=== PATIENT | male | born 1945 | race Caucasian/White ===

== ENCOUNTER 2017-07-21 14:57 | Emergency (ER) | payer MEDICARE ==
[~2017-07-21] VITALS: Ht 190.5 cm; Wt 129.0 kg
[2017-07-21 15:09] VITALS: BP 150/70; PULSE 100; RESP 16; TEMP 98.3; O2SAT 95
[2017-07-21] MEDS ORDERED: LISI2.5T3 PO (15:43)
[2017-07-21] MEDS ORDERED: METO25TA3 PO (15:43)
[2017-07-21] MEDS ORDERED: ASPI-516 CHEW (15:43)
[2017-07-21] MEDS ORDERED: PLAV75TA29 PO (15:43)
[2017-07-21] MEDS ORDERED: LEVEMIR SQ (15:43)
[2017-07-21] MEDS ORDERED: TETANUS/DIPHTHERIA TOXOID ADULT 0.5 ML VIAL IM ONE (16:00)
--- NOTE | 2017-07-21 16:28 | RADRPT ---
EXAM DATE/TIME: 07/21/2017 16:09 [facility] COMPARISON: No previous studies available for comparison. INDICATIONS : Right elbow pain post fall. MEDICAL HISTORY : Hypertension. Diabetes SURGICAL HISTORY : Coronary artery stent. ENCOUNTER: Initial ACUITY: 1 day PAIN SCORE: 5/10 LOCATION: Right upper extremity FINDINGS: Two view examination of the right elbow demonstrates no soft tissue swelling, joint effusion, fractur e or dislocation. Bony mineralization is normal. CONCLUSION: Normal examination for a patient of this age. Rgoer Rivera MD on July 21, 2017 at 16:26 Board Certified Radiologist. This report was verified electronically.
--- NOTE | 2017-07-21 16:29 | RADRPT ---
EXAM DATE/TIME: 07/21/2017 16:09 [facility] COMPARISON: No previous studies available for comparison. INDICATIONS : Right knee pain with abrasion to the patella region post fall. MEDICAL HISTORY : Hypertension. Diabetes SURGICAL HISTORY : Coronary artery stent. ENCOUNTER: Initial ACUITY: 1 day PAIN SCORE: 5/10 LOCATION: Right knee FINDINGS: Two view examination of the right knee demonstrates no evidence of fracture or dislocation. Bony min eralization is normal. The suprapatellar soft tissues have a normal configuration. There are mild de generative changes characteristic for patient's age. CONCLUSION: No acute fracture or joint dislocation. Roger Rivera MD on July 21, 2017 at 16:26 Board Certified Radiologist. This report was verified electronically.
--- NOTE | 2017-07-21 16:29 | RADRPT ---
EXAM DATE/TIME: 07/21/2017 16:09 [facility] COMPARISON: No previous studies available for comparison. INDICATIONS : Right shoulder pain post fall. MEDICAL HISTORY : Hypertension. Diabetes SURGICAL HISTORY : Coronary artery stent. ENCOUNTER: Initial ACUITY: 1 day PAIN SCORE: 5/10 LOCATION: Right upper extremity FINDINGS: Two view examination of the right shoulder demonstrates no evidence of fracture or dislocation. The glenohumeral and acromioclavicular joints are maintained. Bony mineralization is normal. CONCLUSION: Normal examination for a patient of this age. Roger Rivera MD on July 21, 2017 at 16:27 Board Certified Radiologist. This report was verified electronically.
--- NOTE | 2017-07-21 16:36 | RADRPT ---
EXAM DATE/TIME: 07/21/2017 16:23 [facility] COMPARISON: No previous studies available for comparison. INDICATIONS : Patient fell and hit forehead no LOC RADIATION DOSE: 65.21 CTDIvol (mGy) MEDICAL HISTORY : Hypertension. Diabetes mellitus type 2. Cardiovascular diseaseanticoagulant therapy SURGICAL HISTORY : Coronary artery stent. ENCOUNTER: Initial ACUITY: 1 day PAIN SCALE: 4/10 LOCATION: cranial TECHNIQUE: Multiple contiguous axial images were obtained of the head. Using automated exposure control and adj ustment of the mA and/or kV according to patient size, radiation dose was kept as low as reasonably a chievable to obtain optimal diagnostic quality images. DICOM format image data is available electro nically for review and comparison. FINDINGS: CEREBRUM: The ventricles are normal for age. There is bilateral cortical atrophy characteristic for patient's a ge. No evidence of midline shift, mass lesion, hemorrhage or acute infarction. No extra-axial fluid collections are seen. POSTERIOR FOSSA: The cerebellum and brainstem are intact. The 4th ventricle is midline. The cerebellopontine angle i s unremarkable. EXTRACRANIAL: The visualized portion of the orbits is intact. SKULL: The calvaria is intact. No evidence of skull fracture. CONCLUSION: 1. Bilateral cortical atrophy. 2. No acute intracranial hemorrhage. Roger Rivera MD on July 21, 2017 at 16:33 Board Certified Radiologist. This report was verified electronically.
--- NOTE | 2017-07-21 16:47 | PD ---
HPI Chief Complaint: Fall Time Seen by Provider: 15:38 Travel History International Travel<30 days: No Contact w/Intl Traveler<30days: No Traveled to known affect area: No History of Present Illness HPI 71yo M with DM, HTN, CAD on plavix and aspirin presents to the ED after falling while changing tire. Pt has abrasion on right forehead, right elbow and right knee. Said he fell and rolled. He also complained of right shoulder pain. Denies any fever, dizziness, LOC, chest pain, sob, n/v, abdominal pain, focal weakness or numbness. No anticoagulation. Pt now with mild right sided headache. Pt said he has frequent falls and has an appointment with neurologist for this end of this month. Neighbor is here and said he is acting like himself. PFSH Past Medical History Hx Anticoagulant Therapy: Yes Cardiovascular Problems: Yes Diabetes: Yes Patient Takes Glucophage: No Hypertension: Yes Past Surgical History Coronary Stent: Yes (states multiple) Social History Alcohol Use: No Tobacco Use: No Substance Use: No Allergies-Medications (Allergen,Severity, Reaction): Coded Allergies: niacin (Verified Allergy, Unknown, 07/21/17) Reported Meds & Prescriptions Reported Meds & Active Scripts Active Tylenol (Acetaminophen) 325 Mg Tab 325 Mg PO Q4H PRN Reported Plavix (Clopidogrel Bisulfate) 75 Mg Tab 75 Mg PO DAILY Levemir Inj (Insulin Detemir) 1,000 unit/ 10 ML Vial 32 Units SQ DAILY Do not mix with any other Insulin. Aspirin 81 Mg Chew 81 Mg CHEW DAILY Metoprolol Tartrate 25 Mg Tab 25 Mg PO DAILY Lisinopril 2.5 Mg Tab 2.5 Mg PO DAILY Review of Systems Except as stated in HPI: all other systems reviewed are Neg Physical Exam Narrative GENERAL: 71yo M in mild distress. SKIN: Focused skin assessment warm/dry. HEAD: Abrasion right forearm. EYES: Pupils equal and round. No scleral icterus. No injection or drainage. ENT: No nasal bleeding or discharge. Mucous membranes pink and moist. NECK:No midline cervical spine ttp. CARDIOVASCULAR: Regular rate and rhythm. No murmur appreciated. RESPIRATORY: No accessory muscle use. Clear to auscultation. Breath sounds equal bilaterally. GASTROINTESTINAL: Abdomen soft, non-tender, nondistended. MUSCULOSKELETAL: RUE: +Abrasion right elbow. +TTP proximal humerus. Good range of motion. Sensation intact. Distal pulses intact. RLE: +Abrasions on right knee. FROM right knee. Sensation intact. Distal pulses intact. BACK: No midline thoracic or lumbar ttp. NEUROLOGICAL: Awake and alert. No obvious cranial nerve deficits. Motor grossly within normal limits. Normal speech. PSYCHIATRIC: Appropriate mood and affect; insight and judgment normal. Data Data Last Documented VS Vital Signs Date Time Temp Pulse Resp B/P (MAP) Pulse Ox O2 Delivery O2 Flow Rate FiO2 07/21/17 15:09 98.3 100 16 150/70 (96) [address] Brain W/O Iv Contrast(Rout) (07/21/17 ) Ct Cerv Spine W/O Contrast (07/21/17 ) Shoulder, Limited(2vws) (07/21/17 ) Elbow, Limited (Ap&Lat) (07/21/17 ) Knee, Ltd (1 Or 2vws) (07/21/17 ) Tetanus/Diphtheria Tox Adult (Tetanus/Di (07/21/17 16:00) Acetaminophen (Tylenol) (07/21/17 17:15) MDM Medical Decision Making Medical Screen Exam Complete: Yes Emergency Medical Condition: Yes Differential Diagnosis ICH vs. fracture vs. contusion Narrative Course 71yo M here for evaluation after what sounds like a mechanical fall today. Pt is AAOx3 and complains of mild right sided headache and right shoulder pain. Has some abrasion but no lacerations to suture. Denies any dizziness, chest pain, sob, focal weakness or numbness. CT cervical spine showed no acute bony fracture. Xray right elbow negative. CT brain showed bilateral cortical atrophy. No acute intracranial hemorrhage. Xray right knee negative. Xray right shoulder negative. Pt had tetanus 3 years ago. Pt given acetaminophen and pain has improved. Pt wants to go home and next door neighbor is here to accompany him. Strict return precautions given. Diagnosis Primary Impression: Fall Qualified Codes: W19.XXXA - Unspecified fall, initial encounter Patient Instructions: General Instructions Departure Forms: Tests/Procedures Additional Instructions: Please follow up with your primary care physician in 2-3 days. Please return to the ED if symptoms worsen. Med/Other Pt SpecificInfo: Prescription(s) given Scripts Acetaminophen (Tylenol) 325 Mg Tab 325 MG PO Q4H Y for PAIN SCALE 1 TO 4, #20 TAB 0 Refills Prov: Liane Schumacher DO 07/21/17 Disposition: 01 DISCHARGE HOME Condition: Stable Liane Schumacher DO Jul 21, 2017 16:47
--- NOTE | 2017-07-21 16:53 | RADRPT ---
EXAM DATE/TIME: 07/21/2017 16:23 [facility] COMPARISON: No previous studies available for comparison. INDICATIONS : fell and hit forehead no LOC RADIATION DOSE: 26.54 CTDIvol (mGy) MEDICAL HISTORY : Hypertension. Cardiovascular disease Diabetes mellitus type 2.anticoagulant therapy SURGICAL HISTORY : Coronary artery stent. ENCOUNTER: Initial ACUITY: 1 day PAIN SCALE: 4/10 LOCATION: neck TECHNIQUE: Volumetric scanning of the cervical spine was performed. Multiplanar reconstructions in the sagittal, coronal and oblique axial planes were performed. Using automated exposure control and adjustment o f the mA and/or kV according to patient size, radiation dose was kept as low as reasonably achievable to obtain optimal diagnostic quality images. DICOM format image data is available electronically f or review and comparison. FINDINGS: VERTEBRAE: Normal vertebral body height. No acute bony fracture. There are primary degenerative changes involvin g the mid to lower cervical spine with disc space narrowing especially at C5-6 and C6-7. ALIGNMENT: No evidence of subluxation. C2-C3: The bony spinal canal is normal in size. No evidence of disc bulge or herniation. The neural forami na are bilaterally patent. C3-C4: The bony spinal canal is normal in size. No evidence of disc bulge or herniation. The neural forami na are bilaterally patent. C4-C5: The bony spinal canal is normal in size. No evidence of disc bulge or herniation. The neural forami na are bilaterally patent. C5-C6: Broad-based bulging disc with osteophyte complex. The neural from and appear patent. C6-C7: The bony spinal canal is normal in size. No evidence of disc bulge or herniation. The neural forami na are bilaterally patent. C7-T1: The bony spinal canal is normal in size. No evidence of disc bulge or herniation. The neural forami na are bilaterally patent. CONCLUSION: 1. No acute bony fracture. 2. Primary bony degenerative changes with disc degeneration, disc space narrowing and some broad-base d bulging. There is a broad-based bulge with disc osteophyte complex at C5-6. Roger Rivera MD on July 21, 2017 at 16:48 Board Certified Radiologist. This report was verified electronically.
[2017-07-21] MEDS ORDERED: TYLE325T PO (17:15)
[2017-07-21] MEDS ORDERED: ACETAMINOPHEN 500 MG CPLT PO ONE (17:15)
== END 2017-07-21 18:08 | disposition home or self-care (01) ==
LOC: PHED 14:57
DX: S50.311A Abrasion of right elbow, initial encounter (principal); S00.81XA Abrasion of other part of head, initial encounter; S80.211A Abrasion, right knee, initial encounter; W18.39XA Other fall on same level, initial encounter; E11.9 Type 2 diabetes mellitus without complications; I10 Essential (primary) hypertension; I25.10 Atherosclerotic heart disease of native coronary artery without angina pectoris; Y93.89 Activity, other specified; Z79.82 Long term (current) use of aspirin; Z79.02 Long term (current) use of antithrombotics/antiplatelets; Z95.5 Presence of coronary angioplasty implant and graft
CPT/HCPCS: 70450; 72125; 73030; 73070; 73560; 99285

== ENCOUNTER 2018-01-08 22:44 | Emergency (ER) | payer MEDICARE ==
[~2018-01-08] VITALS: Ht 190.5 cm; Wt 130.0 kg
[~2018-01-08 22:44] MED LIST: ASPI-516 CHEW; LEVEMIR SQ; LISI2.5T3 PO; METO25TA3 PO; PLAV75TA29 PO; TYLE325T PO
[2018-01-08 23:06] VITALS: BP 145/75; PULSE 103; RESP 16; TEMP 98.1; O2SAT 95
[2018-01-08] MEDS ORDERED: LIDOCAINE 1%/EPINEPHrine 1:100,000 SOLN 50 ML VIAL INFIL ONE (23:15)
[2018-01-08] MEDS ORDERED: COUM5TAB PO (23:26)
[2018-01-08 23:41] LABS: AUTOMATED NEUTROPHIL # 4.5 TH/MM3 (1.8-7.7); BASOPHIL % 0.3 % (0.0-2.0); EOSINOPHIL # 0.1 TH/MM3 (0-0.4); EOSINOPHIL % 1.2 % (0.0-4.0); HEMOGLOBIN 13.2 GM/DL (13.0-17.0); LYMPH % 17.8 % (9.0-44.0); LYMPHOCYTE # 1.1 TH/MM3 (1.0-4.8); MEAN CORPUSCULAR HEMOGLOBIN 30.2 PG (27.0-34.0); MEAN CORPUSCULAR HGB CONC 32.9 % (32.0-36.0); MEAN PLATELET VOLUME 9.6 FL (7.0-11.0); MONO % 7.8 % (0.0-8.0); MONOCYTE # 0.5 TH/MM3 (0-0.9); NEUT % 72.9 % (16.0-70.0); PLATELET COUNT 196 TH/MM3 (150-450); RED BLOOD COUNT 4.35 MIL/MM3 (4.50-5.90); RED CELL DISTRIBUTION WIDTH 14.8 % (11.6-17.2); WHITE BLOOD COUNT 6.2 TH/MM3 (4.0-11.0)
--- NOTE | 2018-01-08 23:44 | PD ---
HPI Chief Complaint: Laceration/Skin Injury Time Seen by Provider: 23:11 Travel History International Travel<30 days: No Contact w/Intl Traveler<30days: No Traveled to known affect area: No History of Present Illness HPI The patient is a 72 year old male who presents to the [facility] emergency department with a history of tripping and falling in his home prior to arrival. He reports that he uses a cane devices for stability. He reports that he turned out the light and lost his balance. The patient reports that he landed head first on concrete. Patient denies having any loss of consciousness. The patient reports that he developed a laceration to the right side of the forehead just above the right eyebrow. The patient was noted to have significant bleeding upon ambulance services arrival, a pressure bandage was applied which reportedly soaked through multiple times. The patient on arrival has a pressure bandage in place that has blood oozing through the bandaging. The patient reports that he is on Coumadin. He is unsure why he is on Coumadin. He is unsure when his last INR was checked. He denies having any neck pain, paresthesias, numbness or tingling, weakness to his extremities. He reports having a headache related to the pressure bandage, otherwise he denies having any acute complaints. On review of systems otherwise, the patient denies having chest pain, chest pressure, shortness of breath, abdominal pain, or extremity pain. On review of systems otherwise, the patient denies having any known recent fever, vomiting, diarrhea, urinary symptoms, or neurologic symptoms. PFSH Past Medical History Narrative Medical The patient's past medical history is significant for diabetes mellitus, obesity , hypertension, hyperlipidemia, chronic anticoagulation on Coumadin Hx Anticoagulant Therapy: Yes Cardiac Catheterization: Yes Cardiovascular Problems: Yes Diabetes: Yes Patient Takes Glucophage: Yes Hypertension: Yes Parkinson's Disease: Yes Tetanus Vaccination: Unknown Past Surgical History Narrative Surgical The patient's past surgical history is significant for cardiac catheterization with stent placement Coronary Stent: Yes (states multiple) Social History Alcohol Use: No Tobacco Use: No Substance Use: No Allergies-Medications (Allergen,Severity, Reaction): Coded Allergies: niacin (Verified Allergy, Unknown, 07/21/17) Reported Meds & Prescriptions Reported Meds & Active Scripts Active Tylenol (Acetaminophen) 325 Mg Tab 325 Mg PO Q4H PRN Reported Coumadin (Warfarin) 5 Mg Tab 5 Mg PO DAILY Levemir Inj (Insulin Detemir) 1,000 unit/ 10 ML Vial 32 Units SQ DAILY Do not mix with any other Insulin. Aspirin 81 Mg Chew 81 Mg CHEW DAILY Metoprolol Tartrate 25 Mg Tab 25 Mg PO DAILY Lisinopril 2.5 Mg Tab 2.5 Mg PO DAILY Review of Systems Except as stated in HPI: all other systems reviewed are Neg General / Constitutional: No: Fever Eyes: No: Visual changes HENT: Positive: Headaches, No: Congestion, Neck Stiffness, Neck Pain Cardiovascular: No: Chest Pain or Discomfort Respiratory: No: Cough, Shortness of Breath Gastrointestinal: No: Nausea, Vomiting, Diarrhea, Abdominal Pain Genitourinary: No: Dysuria Musculoskeletal: No: Pain Skin: No Rash Neurologic: Positive: Headache, No: Weakness, Focal Abnormalities, Change in Mentation, Slurred Speech, Sensory Disturbance Psychiatric: No: Depression Endocrine: No: Polydipsia Hematologic/Lymphatic: No: Easy Bruising Physical Exam Narrative General: The patient is a well-developed well-nourished male in no acute distress. The patient is brought in with a cervical collar in place. Head and Neck exam: Head is normocephalic, evidence of trauma with a pressure bandage to the head with blood oozing through the pressure bandage along the right side of the head on exam this was gently removed with the assistance of the physician occupational therapist's assistant, Ilya. The patient was noted to have oozing from a laceration involving and above the right eyebrow. This is an apparent jagged laceration. The patient has tenderness on palpation surrounding this site. No increased facial bowel motility on palpation. Eyes: EOMI, pupils are equal round and reactive to light. Nose: Midline septum with pink mucous membranes Mouth: Dentition unremarkable. Moist mucus membranes. Posterior oropharynx is not erythematous. No tonsillar hypertrophy. Uvula midline. Airway patent. Neck: The patient is immobilized in a cervical collar. No tracheal deviation. The trachea appears midline. Cardiovascular: Regular rate and rhythm without murmurs, gallops, or rubs. Lungs: Clear to auscultation bilaterally. No wheezes, rhonchi, or rales. No chest wall tenderness to palpation. No erythema or ecchymosis noted. No crepitus , step off, or flail segment noted. Abdomen: Soft, without tenderness to palpation in all 4 quadrants of the abdomen. No guarding, rebound, or rigidity. No erythema or ecchymosis noted. Extremities: No instability or pain noted on pelvic rock. No clubbing, cyanosis , or edema. 2+ pulses in all 4 extremities. No extremity tenderness or deformity noted on palpation or passive/ active range of motion. The patient is noted to have an area of bruising to the right anterior knee. No ballotable patella. No crepitus or loss of range of motion. Back: No spinous process tenderness to palpation. No stepoff or crepitus noted. No costovertebral angle tenderness to palpation. No erythema or ecchymosis. Neurologic Exam: Cranial nerves 2-12 were intact on exam. Strength is 5/5 in all 4 extremities. No sensory deficits noted. Skin Exam: No rash noted. Intact skin that is warm and dry. Data Data Last Documented VS Vital Signs Date Time Temp Pulse Resp B/P (MAP) Pulse Ox O2 Delivery O2 Flow Rate FiO2 01/08/18 23:09 103 01/08/18 23:06 98.1 16 145/75 (98) 95 Orders Orders Lidocai-Epi 1%-1:100,000 Inj (Xylocaine- (01/08/18 23:15) Electrocardiogram (01/08/18 23:12) Complete Blood Count With Diff (01/08/18 23:12) Comprehensive Metabolic Panel (01/08/18 23:12) Creatine Kinase (Cpk) (01/08/18 23:12) Ckmb (Isoenzyme) Profile (01/08/18 23:12) Troponin I (01/08/18 23:12) Prothrombin Time / Inr (Pt) (01/08/18 23:12) Act Partial Throm Time (Ptt) (01/08/18 23:12) Chest, Single Ap (01/08/18 23:12) Ct Brain W/O Iv Contrast(Rout) (01/08/18 23:12) Iv Access Insert/Monitor (01/08/18 23:12) Ecg Monitoring (01/08/18 23:12) Oximetry (01/08/18 23:12) I-Stat Profile (01/08/18 23:12) I-Stat Creatinine (01/08/18 23:12) Type And Screen (01/08/18 23:12) Pelvis, Ap Only (Routine) (01/08/18 23:12) Oxygen Administration (01/08/18 23:12) Ct Cerv Spine W/O Contrast (01/08/18 23:12) Ct Facial Bones W/O Iv Cont (01/08/18 23:12) Cefazolin 2 Gm Premix (Ancef 2 Gm Premix (01/08/18 23:45) Bqym-Ixj-Fqadte (Booster) Inj (Boostrix (01/08/18 23:45) Sodium Chlor 0.9% 1000 Ml Inj (Ns 1000 M (01/08/18 23:45) Morphine Inj (Morphine Inj) (01/08/18 23:45) Ondansetron Odt (Zofran Odt) (01/08/18 23:45) Labs Laboratory Tests Test 01/08/18 23:30 White Blood Count 6.2 TH/MM3 Red Blood Count 4.35 MIL/MM3 Hemoglobin 13.2 GM/DL Bedside Hemoglobin 12.9 G/DL Hematocrit 40.0 % Bedside Hematocrit 38.0 % Mean Corpuscular Volume 92.0 FL Mean Corpuscular Hemoglobin 30.2 PG Mean Corpuscular Hemoglobin Concent 32.9 % Red Cell Distribution Width 14.8 % Platelet Count 196 TH/MM3 Mean Platelet Volume 9.6 FL Neutrophils (%) (Auto) 72.9 % Lymphocytes (%) (Auto) 17.8 % Monocytes (%) (Auto) 7.8 % Eosinophils (%) (Auto) 1.2 % Basophils (%) (Auto) 0.3 % Neutrophils # (Auto) 4.5 TH/MM3 Lymphocytes # (Auto) 1.1 TH/MM3 Monocytes # (Auto) 0.5 TH/MM3 Eosinophils # (Auto) 0.1 TH/MM3 Basophils # (Auto) 0.0 TH/MM3 CBC Comment DIFF FINAL Differential Comment Prothrombin Time 10.6 SEC Prothromb Time International Ratio 1.0 RATIO Activated Partial Thromboplast Time 24.8 SEC Bedside Sodium 137 MMOL/L Blood Urea Nitrogen 25 MG/DL Creatinine 1.53 MG/DL Random Glucose 219 MG/DL Total Protein 7.6 GM/DL Albumin 3.4 GM/DL Calcium Level 9.0 MG/DL Alkaline Phosphatase 106 U/L Aspartate Amino Transf (AST/SGOT) 12 U/L Alanine Aminotransferase (ALT/SGPT) 9 U/L Total Bilirubin 0.4 MG/DL Sodium Level 137 MEQ/L Potassium Level 4.3 MEQ/L Chloride Level 102 MEQ/L Carbon Dioxide Level 23.9 MEQ/L Bedside Potassium 4.4 MMOL/L Bedside Chloride 100 MMOL/L Anion Gap 11 MEQ/L Bedside Blood Urea Nitrogen 27 MG/DL Bedside Creatinine 1.4 MG/DL Estimat Glomerular Filtration Rate 45 ML/MIN Bedside Glucose 221 MG/DL Total Creatine Kinase 35 U/L Troponin I LESS THAN 0.02 NG/ML MDM Medical Decision Making Medical Screen Exam Complete: Yes Emergency Medical Condition: Yes Medical Record Reviewed: Yes Differential Diagnosis Intracranial hemorrhage, versus facial bone fracture, versus cervical spine trauma, versus intrathoracic trauma, versus pelvis trauma Narrative Course During the course of the patient's emergency department visit, the patient's history, examination, and differential diagnosis were reviewed with the patient. The patient was placed on a hall monitor with oximetry and frequent blood pressure monitoring. The patient had IV access obtained and blood work sent for analysis. An i-STAT with creatinine was ordered as the patient is anticoagulated on Coumadin with head trauma. The patient was initially provided Ancef 2 g IV, normal saline at 70 mL/h, and update to his tetanus, morphine for pain, Zofran for nausea. The patient's laboratory studies were reviewed and remarkable for an i-STAT with creatinine revealed a creatinine 1.4, sodium 136, potassium 4.4, chloride 100, BUN 27, glucose 221, hemoglobin 12.9. White count 6.2, platelets 196 with 72.9 neutrophils, CMP is remarkable for a glucose of 219, AST 12, ALT 9, cardiac enzymes within normal limits, PT 10.6, PTT 24.8, INR 1.0 Radiology studies were reviewed Last Impressions Pelvis X-Ray 01/08/182311 Signed Impressions: CONCLUSION: No acute fracture or joint dislocation. Maxillofacial CT 01/08/182311 Signed Impressions: CONCLUSION: 1. No acute bony fracture. 2. Old blowout fracture involving the inferior wall the left orbit. 3. Nasal septal deviation to the left. Head CT 01/08/182311 Signed Impressions: CONCLUSION: 1. Unremarkable and stable CT scan of the brain for patient's age. Chest X-Ray 01/08/182311 Signed Impressions: CONCLUSION: Scattered areas of atelectasis in both lower lungs. Cervical Spine CT 01/08/182311 Signed Impressions: CONCLUSION: 1. Stable CT cervical spine compared to the prior examination. 2. No significant change in the primary degenerative changes, disc degeneratio n disc space narrowing at C5-6. The patient's wound was cleaned, explored, and repaired by Ilya, the physician occupational therapist's assistant. The patient's bleeding was controlled. The patient will be discharged home. The patient is resting comfortably and feels better, is alert and in no distress. The patient's results and examination findings were discussed with the patient. The repeat examination is unremarkable and benign. The history, exam, diagnostic testing, and current condition do not suggest any significant pathology to warrant further testing, continued ED treatment, admission, or surgical evaluation at this point. The vital signs have been stable. The patient does not have uncontrollable pain, intractable vomiting, or other significant symptoms. The patient's condition is stable and appropriate for discharge. The patient will pursue further outpatient evaluation with a primary care physician or other designated or consulting physician as indicated in the discharge instructions. The patient is instructed to report back to the emergency department immediately for reexamination in the mean time if he/ she develops any new or worsening signs or symptoms. The patient expressed understanding and was agreeable with this plan. Diagnosis Primary Impression: Head injury Qualified Codes: S09.90XA - Unspecified injury of head, initial encounter Additional Impression: Facial laceration Qualified Codes: S01.81XA - Laceration without foreign body of other part of head, initial encounter Referrals: Primary Care Physician 2 days Patient Instructions: Facial Laceration (ED), General Instructions, Head Injury (ED) Med/Other Pt SpecificInfo: Prescription(s) given Disposition: 01 DISCHARGE HOME Condition: Stable Viktoriya Mckee MD Jan 08, 2018 23:44
[2018-01-08] MEDS ORDERED: ceFAZolin 2 GM PREMIX 50 ML IV ONE (23:45)
[2018-01-08] MEDS ORDERED: ONDANSETRON ODT 4 MG TAB PO ONE (23:45)
[2018-01-08] MEDS ORDERED: MORPHINE SULFATE 4 MG/ML INJ IV PUSH ONE (23:45)
[2018-01-08] MEDS ORDERED: SODIUM CHLOR 0.9% 1000 ML INJ 1,000 ML IV SCH (23:45)
[2018-01-08] MEDS ORDERED: DIPHTH/TETANUS/ACEL PERTUSSIS (BOOSTER) 0.5 ML VIAL/PFS IM ONE (23:45)
--- NOTE | 2018-01-08 23:46 | PD ---
Physical Exam Time Seen by Provider: 23:45 Data Data Last Documented VS Vital Signs Date Time Temp Pulse Resp B/P (MAP) Pulse Ox O2 Delivery O2 Flow Rate FiO2 01/08/18 23:09 103 01/08/18 23:06 98.1 16 145/75 (98) 95 Orders Orders Lidocai-Epi 1%-1:100,000 Inj (Xylocaine- (01/08/18 23:15) Electrocardiogram (01/08/18 23:12) Complete Blood Count With Diff (01/08/18 23:12) Comprehensive Metabolic Panel (01/08/18 23:12) Creatine Kinase (Cpk) (01/08/18 23:12) Ckmb (Isoenzyme) Profile (01/08/18 23:12) Troponin I (01/08/18 23:12) Prothrombin Time / Inr (Pt) (01/08/18 23:12) Act Partial Throm Time (Ptt) (01/08/18 23:12) Chest, Single Ap (01/08/18 23:12) Ct Brain W/O Iv Contrast(Rout) (01/08/18 23:12) Iv Access Insert/Monitor (01/08/18 23:12) Ecg Monitoring (01/08/18 23:12) Oximetry (01/08/18 23:12) I-Stat Profile (01/08/18 23:12) I-Stat Creatinine (01/08/18 23:12) Type And Screen (01/08/18 23:12) Pelvis, Ap Only (Routine) (01/08/18 23:12) Oxygen Administration (01/08/18 23:12) Ct Cerv Spine W/O Contrast (01/08/18 23:12) Ct Facial Bones W/O Iv Cont (01/08/18 23:12) Cefazolin 2 Gm Premix (Ancef 2 Gm Premix (01/08/18 23:45) Iimq-Bam-Xbkiru (Booster) Inj (Boostrix (01/08/18 23:45) Sodium Chlor 0.9% 1000 Ml Inj (Ns 1000 M (01/08/18 23:45) Morphine Inj (Morphine Inj) (01/08/18 23:45) Ondansetron Inj (Zofran Inj) (01/08/18 23:45) Labs Laboratory Tests Test 01/08/18 23:30 White Blood Count 6.2 TH/MM3 Red Blood Count 4.35 MIL/MM3 Hemoglobin 13.2 GM/DL Bedside Hemoglobin 12.9 G/DL Hematocrit 40.0 % Bedside Hematocrit 38.0 % Mean Corpuscular Volume 92.0 FL Mean Corpuscular Hemoglobin 30.2 PG Mean Corpuscular Hemoglobin Concent 32.9 % Red Cell Distribution Width 14.8 % Platelet Count 196 TH/MM3 Mean Platelet Volume 9.6 FL Neutrophils (%) (Auto) 72.9 % Lymphocytes (%) (Auto) 17.8 % Monocytes (%) (Auto) 7.8 % Eosinophils (%) (Auto) 1.2 % Basophils (%) (Auto) 0.3 % Neutrophils # (Auto) 4.5 TH/MM3 Lymphocytes # (Auto) 1.1 TH/MM3 Monocytes # (Auto) 0.5 TH/MM3 Eosinophils # (Auto) 0.1 TH/MM3 Basophils # (Auto) 0.0 TH/MM3 CBC Comment DIFF FINAL Differential Comment Bedside Sodium 137 MMOL/L Bedside Potassium 4.4 MMOL/L Bedside Chloride 100 MMOL/L Bedside Blood Urea Nitrogen 27 MG/DL Bedside Creatinine 1.4 MG/DL Bedside Glucose 221 MG/DL [facility] Medical Record Reviewed: Yes Supervised Visit with FAVIAN: No Narrative Course This patient presents with a forehead laceration which I was asked to repair. He verbally consents. See accompanying procedural note. Procedures Procedure Narrative LACERATION LOCATION: Right forehead LENGTH: 6 cm NUMBER OF STITCHES/CECILIA: 14 REPAIR: The area of the laceration was prepped with Betadine and sterilely draped. The laceration was infiltrated with [1% lidocaine with epinephrine. The wound was copiously irrigated and explored without evidence of foreign body , tendon injury or neurovascular injury. The wound was closed using 5-0 nylon simple interrupted. This was a single layer repair. A sterile dressing was applied. The patient was advised to keep the dressing clean and dry. Patient tolerated the procedure well. Diagnosis Primary Impression: Head injury Additional Impression: Facial laceration Ilya Flores Jan 08, 2018 23:46
[2018-01-08 23:50] LABS: PROTHROMBIN TIME - PATIENT 10.6 SEC (9.8-11.6)
[2018-01-09] LABS: ALBUMIN 3.4 GM/DL (3.4-5.0); ALT (GPT) 9 U/L (12-78); AST (GOT) 12 U/L (15-37); BICARBONATE 23.9 MEQ/L (21.0-32.0); BLOOD UREA NITROGEN 25 MG/DL (7-18); CHLORIDE 102 MEQ/L (98-107); CREATININE 1.53 MG/DL (0.60-1.30); GLOMERULAR FILTRATION RATE 45 ML/MIN (>89); GLUCOSE,RANDOM 219 MG/DL (74-106); SODIUM (NA) 137 MEQ/L (136-145)
[2018-01-09 00:04] LABS: ALKALINE PHOSPHATASE 106 U/L (45-117); TOTAL BILIRUBIN ADULT 0.4 MG/DL (0.2-1.0); TOTAL PROTEIN 7.6 GM/DL (6.4-8.2); TROPONIN I LESS THAN 0.02 NG/ML (0.02-0.05)
--- NOTE | 2018-01-09 00:05 | RADRPT ---
EXAM DATE: 01/08/2018 11:59 PM EDT AGE/SEX: 72 years / Male INDICATIONS: Trauma. Fell on face. CLINICAL DATA: This is the patient's initial encounter. Patient reports that signs and symptoms have been present for 1 day and indicates a pain score of 6/10. MEDICAL/SURGICAL HISTORY: Cardiovascular disease. Hypertension. Diabetes mellitus type II. Carvajal ry artery stent. RADIATION DOSE: 46.57 CTDI (mGy) COMPARISON: [facility], CT BRAIN W/O CONTRAST, 07/21/2017. . TECHNIQUE: CT of the head without contrast. Using automated exposure control and adjustment of the mA and/or kV according to patient size, radiation dose was kept as low as reasonably achievable to ob tain optimal diagnostic quality images. FINDINGS: Cerebrum: The ventricles are normal for age. Stable bilateral cortical atrophy. No evidence of midli ne shift, mass lesion, hemorrhage or acute infarction. No extraaxial fluid collections are seen. Posterior Fossa: The cerebellum and brainstem are intact. The 4th ventricle is midline. The cerebe llopontine angle is unremarkable. Extracranial: The visualized portion of the orbits is intact. Skull: The calvaria is intact. No evidence of skull fracture. CONCLUSION: 1. Unremarkable and stable CT scan of the brain for patient's age. Electronically signed by: Roger Rivera MD 01/09/2018 12:04 AM EDT
--- NOTE | 2018-01-09 00:08 | RADRPT ---
EXAM DATE: 01/09/2018 12:04 AM EDT AGE/SEX: 72 years / Male INDICATIONS: Trauma. Fell on face. CLINICAL DATA: This is the patient's initial encounter. Patient reports that signs and symptoms have been present for 1 day and indicates a pain score of 6/10. MEDICAL/SURGICAL HISTORY: Cardiovascular disease. Hypertension. Diabetes mellitus type II. Co ronary artery stent. RADIATION DOSE: 22.45 CTDI (mGy) COMPARISON: [facility], CT CERVICAL SPINE W/O CONTRAST, 07/21/2017. . TECHNIQUE: Contiguous axial images were obtained using helical multirow detector technique. The vol umetric data was post-processed with multiplanar reconstruction in oblique axial, sagittal, and coron al planes. Using automated exposure control and adjustment of the mA and/or kV according to patient s ize, radiation dose was kept as low as reasonably achievable to obtain optimal diagnostic quality jenae ges. FINDINGS: Vertebrae: Stable degenerative changes involving the mid to lower cervical spine. There continues to be disc degeneration with disc space narrowing especially at C5-6. No acute bony fractures. No signi ficant changes compared to the prior exam. Alignment: Normal. No subluxation. C2-3: The bony spinal canal is normal in size. No evidence of disc bulge or herniation. The neural foramina are bilaterally patent. C3-4: The bony spinal canal is normal in size. No evidence of disc bulge or herniation. The neural foramina are bilaterally patent. C4-5: The bony spinal canal is normal in size. No evidence of disc bulge or herniation. The neural foramina are bilaterally patent. C5-6: Broad-based bulging with disc osteophyte complex. Mild narrowing of the left neural foramina. The right neural foramina is patent. C6-7: The bony spinal canal is normal in size. No evidence of disc bulge or herniation. The neural foramina are bilaterally patent. C7-T1: The bony spinal canal is normal in size. No evidence of disc bulge or herniation. The neura l foramina are bilaterally patent. CONCLUSION: 1. Stable CT cervical spine compared to the prior examination. 2. No significant change in the primary degenerative changes, disc degeneration disc space narrowing at C5-6. Electronically signed by: Roger Rivera MD 01/09/2018 12:07 AM EDT
--- NOTE | 2018-01-09 00:18 | RADRPT ---
EXAM DATE: 01/09/2018 12:08 AM EDT AGE/SEX: 72 years / Male INDICATIONS: Trauma. Fell on face. CLINICAL DATA: This is the patient's initial encounter. Patient reports that signs and symptoms have been present for 1 day and indicates a pain score of 6/10. MEDICAL/SURGICAL HISTORY: Cardiovascular disease. Hypertension. Diabetes mellitus type II. Co ronary artery stent. RADIATION DOSE: 29.76 CTDI (mGy) COMPARISON: No prior [place] exams available for comparison. TECHNIQUE: Contiguous images in the axial and coronal planes were obtained using helical multirow de tector technique. Using automated exposure control and adjustment of the mA and/or kV according to p atient size, radiation dose was kept as low as reasonably achievable to obtain optimal diagnostic karla lity images. FINDINGS: Orbits: There is an old fracture involving the inferior wall of the left orbit. Otherwise, the bony structures surrounding the orbits are grossly intact. Nasal Bone: The nasal bone and maxillary spine are intact. Zygomatic Arches: Symmetric without evidence of fracture. Sinuses: The maxillary, ethmoid, and frontal sinuses are intact. No air-fluid levels seen. Nasal Cavity: Mild nasal septal deviation to the left. Aerated justen bullosa involving the middle t urbinates bilaterally.. Soft Tissues: No radiopaque foreign bodies seen. No soft-tissue swelling is seen. Intracranial: No intracranial air seen. Cribriform Plate: Grossly intact. CONCLUSION: 1. No acute bony fracture. 2. Old blowout fracture involving the inferior wall the left orbit. 3. Nasal septal deviation to the left. Electronically signed by: Roger Rivera MD 01/09/2018 12:16 AM EDT
--- NOTE | 2018-01-09 00:30 | RADRPT ---
EXAM DATE: 01/09/2018 12:20 AM EDT AGE/SEX: 72 years / Male INDICATIONS: Fall. Trauama. CLINICAL DATA: This is the patient's initial encounter. Patient reports that signs and symptoms have been present for 1 day and indicates a pain score of 3/10. MEDICAL/SURGICAL HISTORY: Hypertension. Diabetes. Parkinsons . Coronary artery stent. COMPARISON: No prior [place] exams available for comparison. FINDINGS: Examination of the pelvis demonstrates no evidence of fracture or dislocation. Bony mineralization i s normal. Mild degenerative changes at the hip joints. There is no widening of the sacroiliac joints . No foreign body is identified. CONCLUSION: No acute fracture or joint dislocation. Electronically signed by: Roegr Rivera MD 01/09/2018 12:28 AM EDT
--- NOTE | 2018-01-09 00:36 | RADRPT ---
EXAM DATE: 01/09/2018 12:22 AM EDT AGE/SEX: 72 years / Male INDICATIONS: Fall. Trauma. CLINICAL DATA: This is the patient's initial encounter. Patient reports that signs and symptoms have been present for 1 day and indicates a pain score of 3/10. MEDICAL/SURGICAL HISTORY: Hypertension. Diabetes. Parkinsons. . Coronary artery stent. COMPARISON: No prior [place] exams available for comparison. FINDINGS: A single AP view of the chest demonstrates some scattered atelectasis in both lower lungs. There is m ild elevation of the right hemidiaphragm. Mild prominence of the pulmonary vasculature. No evidence o f pleural effusions.. The cardiomediastinal contours are unremarkable. Osseous structures are intac t. CONCLUSION: Scattered areas of atelectasis in both lower lungs. Electronically signed by: Roger Rivera MD 01/09/2018 12:35 AM EDT
--- NOTE | 2018-01-09 15:28 | EKG ---
Date Performed: 01/09/2018 Time Performed: 00:28:31 PTAGE: 72 years EKG: SINUS TACHYCARDIA NONSPECIFIC T-WAVE ABNORMALITY ABNORMAL RHYTHM ECG NO PREVIOUS TRACING DOCTOR: Lissa Adkins Interpretating Date/Time 01/09/2018 15:25:52
== END 2018-01-09 02:30 | disposition home or self-care (01) ==
LOC: NEPC 22:44
DX: S01.81XA Laceration without foreign body of other part of head, initial encounter (principal); J34.2 Deviated nasal septum; R00.0 Tachycardia, unspecified; I10 Essential (primary) hypertension; E11.9 Type 2 diabetes mellitus without complications; E78.5 Hyperlipidemia, unspecified; G20 Parkinson's disease; E66.9 Obesity, unspecified; Z23 Encounter for immunization; Z79.01 Long term (current) use of anticoagulants; Z79.84 Long term (current) use of oral hypoglycemic drugs; Z95.5 Presence of coronary angioplasty implant and graft; W01.0XXA Fall on same level from slipping, tripping and stumbling without subsequent striking against object, initial encounter
CPT/HCPCS: 12014; 70450; 70486; 71045; 72125; 72170; 80053; 82550; 84484; 85025; 85610; 85730; 86850; 86900; 86901; 90471; 90715; 93005; 96365; 96375; 99284; J0690; J2270; J7030; 80048; 96372

== ENCOUNTER 2018-01-13 17:32 | Emergency (ER) | payer MEDICARE ==
[~2018-01-13] VITALS: Ht 190.5 cm; Wt 129.0 kg
[~2018-01-13 17:32] MED LIST changes: +COUM5TAB PO; -PLAV75TA29 PO
[2018-01-13 17:45] VITALS: BP 146/58; PULSE 106; RESP 18; TEMP 98; O2SAT 92
--- NOTE | 2018-01-13 18:01 | PD ---
HPI Chief Complaint: Head injury Time Seen by Provider: 17:40 Travel History International Travel<30 days: No Contact w/Intl Traveler<30days: No Traveled to known affect area: No History of Present Illness HPI This patient had a fall at home. He has chronic unsteady gait. He falls frequently. He was using his cane and stumbled. He did not have presyncopal symptoms. He was not using a walker that he has at home. He does take Coumadin despite falling frequently. He has been here twice this week now for head injury after falls. Symptom severity is moderate. No alleviating factors. Symptoms exacerbated by his chronic unsteady gait. He suffered a laceration to his left ear when he fell. He complains of headache. No neck pain. No LOC. PFSH Past Medical History Hx Anticoagulant Therapy: Yes Cardiac Catheterization: Yes Cardiovascular Problems: Yes Diabetes: Yes Hypertension: Yes Parkinson's Disease: Yes Past Surgical History Coronary Stent: Yes (states multiple) Social History Alcohol Use: No Tobacco Use: No Substance Use: No Allergies-Medications (Allergen,Severity, Reaction): Coded Allergies: niacin (Verified Allergy, Unknown, 01/13/18) Reported Meds & Prescriptions Reported Meds & Active Scripts Active Reported Coumadin (Warfarin) 5 Mg Tab 5 Mg PO DAILY Levemir Inj (Insulin Detemir) 1,000 unit/ 10 ML Vial 50 Units SQ DAILY Do not mix with any other Insulin. Aspirin 81 Mg Chew 81 Mg CHEW DAILY Metoprolol Tartrate 25 Mg Tab 25 Mg PO DAILY Lisinopril 2.5 Mg Tab 2.5 Mg PO DAILY Review of Systems General / Constitutional: No: Fever Eyes: No: Visual changes HENT: Positive: Headaches Cardiovascular: No: Chest Pain or Discomfort Respiratory: No: Shortness of Breath Gastrointestinal: No: Abdominal Pain Genitourinary: No: Dysuria Musculoskeletal: No: Pain Skin: No Rash Neurologic: Positive: Headache, No: Weakness Psychiatric: No: Depression Endocrine: No: Polydipsia Hematologic/Lymphatic: No: Easy Bruising Physical Exam Narrative GENERAL: Well-nourished, well-developed patient in no apparent distress. SKIN: Focused skin assessment reveals no rash and nodules. Skin is Warm and dry. hAs a few old abrasions to the legs HEAD: Patient has a sutured laceration to the right brow with some swelling Normocephalic. EYES: Pupils equal and round. No scleral icterus. No injection or drainage. ENT: No nasal bleeding or discharge. Mucous membranes pink and moist. NECK: Trachea midline. No JVD. No midline tenderness. Has a raised lesion on left side of his neck but says he has an appointment to have this removed and has had evaluation of it. He has a laceration to the left earlobe on the front. There is no tissue loss. No mastoid tenderness CARDIOVASCULAR: Regular rate and rhythm. No murmur appreciated. RESPIRATORY: No accessory muscle use. Clear to auscultation. Breath sounds equal bilaterally. GASTROINTESTINAL: Abdomen soft, non-tender, nondistended. Hepatic and splenic margins not palpable. MUSCULOSKELETAL: No obvious deformities. No clubbing. No cyanosis. No edema. NEUROLOGICAL: Awake and alert. No obvious cranial nerve deficits. Motor grossly within normal limits. Normal speech. PSYCHIATRIC: Appropriate mood and affect; insight and judgment normal. Data Data Last Documented VS Vital Signs Date Time Temp Pulse Resp B/P (MAP) Pulse Ox O2 Delivery O2 Flow Rate FiO2 01/13/18 20:17 96 18 150/72 (98) 94 Nasal Cannula 2.00 01/13/18 17:45 98.0 Orders Orders Iv Access Insert/Monitor (01/13/18 17:51) Complete Blood Count With Diff (01/13/18 17:51) Prothrombin Time / Inr (Pt) (01/13/18 17:51) Basic Metabolic Panel (Bmp) (01/13/18 17:51) Ct Brain W/O Iv Contrast(Rout) (01/13/18 ) Lidocaine 1% Inj (Xylocaine 1% Inj) (01/13/18 20:00) Lidocaine 1% Inj (Xylocaine 1% Inj) (01/13/18 20:00) Labs Laboratory Tests Test 01/13/18 18:00 White Blood Count 7.3 TH/MM3 Red Blood Count 4.00 MIL/MM3 Hemoglobin 12.4 GM/DL Hematocrit 36.4 % Mean Corpuscular Volume 91.0 FL Mean Corpuscular Hemoglobin 31.0 PG Mean Corpuscular Hemoglobin Concent 34.1 % Red Cell Distribution Width 14.4 % Platelet Count 198 TH/MM3 Mean Platelet Volume 9.8 FL Neutrophils (%) (Auto) 87.9 % Lymphocytes (%) (Auto) 6.7 % Monocytes (%) (Auto) 4.3 % Eosinophils (%) (Auto) 0.6 % Basophils (%) (Auto) 0.5 % Neutrophils # (Auto) 6.5 TH/MM3 Lymphocytes # (Auto) 0.5 TH/MM3 Monocytes # (Auto) 0.3 TH/MM3 Eosinophils # (Auto) 0.0 TH/MM3 Basophils # (Auto) 0.0 TH/MM3 CBC Comment DIFF FINAL Differential Comment Prothrombin Time 11.1 SEC Prothromb Time International Ratio 1.1 RATIO Blood Urea Nitrogen 15 MG/DL Creatinine 1.20 MG/DL Random Glucose 239 MG/DL Calcium Level 8.6 MG/DL Sodium Level 137 MEQ/L Potassium Level 3.7 MEQ/L Chloride Level 106 MEQ/L Carbon Dioxide Level 21.0 MEQ/L Anion Gap 10 MEQ/L Estimat Glomerular Filtration Rate 59 ML/MIN MDM Medical Decision Making Medical Screen Exam Complete: Yes Emergency Medical Condition: Yes Medical Record Reviewed: Yes Differential Diagnosis Intracranial hemorrhage, concussion, skull fracture Narrative Course I have reviewed the patient's electronic medical record. Patient was here January 08, 2018 with fall and head injury. He was also here July 2017 with fall This patient has frequent falls and is chronically unsteady. He is not a good candidate to be on Coumadin. I have suggested that he stop his Coumadin given the risk of intracranial hemorrhage from fall is extremely high. Patient cannot tell me why is on Coumadin. IV placed and labs sent Brain CT is negative for acute injury CASIMIRO Altagracia is fixing the left ear laceration INR is 1.0. He may not be taking it anyway although he says he is. General labs noted Stable for outpatient follow-up. I encouraged him to use the walker at all times and call his physician Monday for follow-up Diagnosis Primary Impression: Head injury Qualified Codes: S09.90XA - Unspecified injury of head, initial encounter Additional Impressions: Laceration of left ear Qualified Codes: S01.312A - Laceration without foreign body of left ear, initial encounter Fall Qualified Codes: W19.XXXA - Unspecified fall, initial encounter Departure Forms: Tests/Procedures Additional Instructions: Use walker at all times The patient was advised to follow up with their physician and return if they worsen. Stop Coumadin but advise your physician of this Med/Other Pt SpecificInfo: Other Disposition: 01 DISCHARGE HOME Condition: Stable Kocisko,Stas J. MD Jan 13, 2018 18:01
[2018-01-13 18:08] LABS: AUTOMATED NEUTROPHIL # 6.5 TH/MM3 (1.8-7.7); BASOPHIL % 0.5 % (0.0-2.0); EOSINOPHIL % 0.6 % (0.0-4.0); HEMATOCRIT 36.4 % (39.0-51.0); HEMOGLOBIN 12.4 GM/DL (13.0-17.0); LYMPH % 6.7 % (9.0-44.0); LYMPHOCYTE # 0.5 TH/MM3 (1.0-4.8); MEAN CORPUSCULAR HGB CONC 34.1 % (32.0-36.0); MEAN PLATELET VOLUME 9.8 FL (7.0-11.0); MONO % 4.3 % (0.0-8.0); MONOCYTE # 0.3 TH/MM3 (0-0.9); NEUT % 87.9 % (16.0-70.0); PLATELET COUNT 198 TH/MM3 (150-450); RED CELL DISTRIBUTION WIDTH 14.4 % (11.6-17.2); WHITE BLOOD COUNT 7.3 TH/MM3 (4.0-11.0)
[2018-01-13 18:25] VITALS: BP 142/66; PULSE 104; RESP 18; O2SAT 94
[2018-01-13 18:31] LABS: CALCIUM 8.6 MG/DL (8.5-10.1)
[2018-01-13 18:33] LABS: INTERNATIONAL NORMALIZED RATIO 1.1 RATIO; PROTHROMBIN TIME - PATIENT 11.1 SEC (9.8-11.6)
[2018-01-13 18:35] LABS: CREATININE 1.2 MG/DL (0.60-1.30)
--- NOTE | 2018-01-13 18:56 | RADRPT ---
EXAM DATE: 01/13/2018 6:49 PM EDT AGE/SEX: 72 years / Male INDICATIONS: Fall. Laceration to left ear. Recent fall a few days ago as well. CLINICAL DATA: This is the patient's initial encounter. Patient reports that signs and symptoms have been present for 1 day and indicates a pain score of 4/10. MEDICAL/SURGICAL HISTORY: Cardiovascular disease. Hypertension. Diabetes. Parkinson's disease. Coronary artery stent. RADIATION DOSE: 64.36 CTDI (mGy) COMPARISON: [facility] [place], CT BRAIN W/O CONTRAST, 01/08/2018. . TECHNIQUE: CT of the head without contrast. Using automated exposure control and adjustment of the mA and/or kV according to patient size, radiation dose was kept as low as reasonably achievable to ob tain optimal diagnostic quality images. FINDINGS: Cerebrum: The ventricles are normal for age. No evidence of midline shift, mass lesion, hemorrhage or acute infarction. No extraaxial fluid collections are seen. Posterior Fossa: The cerebellum and brainstem are intact. The 4th ventricle is midline. The cerebe llopontine angle is unremarkable. Extracranial: The visualized portion of the orbits is intact. Skull: The calvaria is intact. No evidence of skull fracture. CONCLUSION: 1. No acute intracranial abnormalities. Right frontal scalp swelling. Electronically signed by: Zechariah Watson MD 01/13/2018 6:54 PM EDT
[2018-01-13] MEDS ORDERED: LIDOCAINE HCL 1% 10 ML VIAL INFIL ONE (20:00)
[2018-01-13] MEDS ORDERED: LIDOCAINE HCL 1% 30 ML VIAL INFIL ONE (20:00)
[2018-01-13] MEDS ORDERED: LIDOCAINE HCL 1% 20 ML VIAL INFIL ONE (20:00)
--- NOTE | 2018-01-13 20:14 | PD ---
Physical Exam Time Seen by Provider: 20:13 Narrative I was asked to repair the laceration to the left ear. Data Data Last Documented VS Vital Signs Date Time Temp Pulse Resp B/P (MAP) Pulse Ox O2 Delivery O2 Flow Rate FiO2 01/13/18 18:25 104 18 142/66 (91) 94 Nasal Cannula 2.00 01/13/18 17:45 98.0 Orders Orders Iv Access Insert/Monitor (01/13/18 17:51) Complete Blood Count With Diff (01/13/18 17:51) Prothrombin Time / Inr (Pt) (01/13/18 17:51) Basic Metabolic Panel (Bmp) (01/13/18 17:51) Ct Brain W/O Iv Contrast(Rout) (01/13/18 ) Lidocaine 1% Inj (Xylocaine 1% Inj) (01/13/18 20:00) Lidocaine 1% Inj (Xylocaine 1% Inj) (01/13/18 20:00) Labs Laboratory Tests Test 01/13/18 18:00 White Blood Count 7.3 TH/MM3 Red Blood Count 4.00 MIL/MM3 Hemoglobin 12.4 GM/DL Hematocrit 36.4 % Mean Corpuscular Volume 91.0 FL Mean Corpuscular Hemoglobin 31.0 PG Mean Corpuscular Hemoglobin Concent 34.1 % Red Cell Distribution Width 14.4 % Platelet Count 198 TH/MM3 Mean Platelet Volume 9.8 FL Neutrophils (%) (Auto) 87.9 % Lymphocytes (%) (Auto) 6.7 % Monocytes (%) (Auto) 4.3 % Eosinophils (%) (Auto) 0.6 % Basophils (%) (Auto) 0.5 % Neutrophils # (Auto) 6.5 TH/MM3 Lymphocytes # (Auto) 0.5 TH/MM3 Monocytes # (Auto) 0.3 TH/MM3 Eosinophils # (Auto) 0.0 TH/MM3 Basophils # (Auto) 0.0 TH/MM3 CBC Comment DIFF FINAL Differential Comment Prothrombin Time 11.1 SEC Prothromb Time International Ratio 1.1 RATIO Blood Urea Nitrogen 15 MG/DL Creatinine 1.20 MG/DL Random Glucose 239 MG/DL Calcium Level 8.6 MG/DL Sodium Level 137 MEQ/L Potassium Level 3.7 MEQ/L Chloride Level 106 MEQ/L Carbon Dioxide Level 21.0 MEQ/L Anion Gap 10 MEQ/L Estimat Glomerular Filtration Rate 59 ML/MIN MDM Supervised Visit with FAVIAN: No Narrative Course I was asked to repair the laceration to the left ear. See my procedure note for laceration repair. Procedures Procedure Narrative LACERATION LOCATION: Left ear LENGTH: 1-1/2 cm NUMBER OF STITCHES/CECILIA: 7 simple interrupted suture REPAIR: The area of the laceration was prepped with Betadine and sterilely draped. The laceration was infiltrated with 1% lidocaine. The wound was copiously irrigated and explored without evidence of foreign body , tendon injury or neurovascular injury. The wound was closed using 5-0 Prolene. This was a single layer repair. A sterile dressing was applied. The patient was advised to keep the dressing clean and dry. Patient tolerated the procedure well. Altargacia Medeiros [facility] Jan 13, 2018 20:14
[2018-01-13 20:17] VITALS: BP 150/72; PULSE 96; RESP 18; O2SAT 94
== END 2018-01-13 21:10 | disposition home or self-care (01) ==
LOC: PHED 17:32
DX: S01.312A Laceration without foreign body of left ear, initial encounter (principal); S09.90XA Unspecified injury of head, initial encounter; W19.XXXA Unspecified fall, initial encounter; Y92.009 Unspecified place in unspecified non-institutional (private) residence as the place of occurrence of the external cause; R26.81 Unsteadiness on feet; R29.6 Repeated falls; E11.9 Type 2 diabetes mellitus without complications; I10 Essential (primary) hypertension; G20 Parkinson's disease; Z95.5 Presence of coronary angioplasty implant and graft; Z79.01 Long term (current) use of anticoagulants
CPT/HCPCS: 12011; 70450; 80048; 85025; 85610